=== PATIENT | male | born 1960 | race Caucasian/White ===

== ENCOUNTER 2018-09-13 13:24 | Emergency (ER) | payer OTHER ==
--- NOTE | 2018-09-13 14:17 | ER ---
Nurse's Notes [facility] Name: Jonas Clark Age: 57 yrs Sex: Male : 1960 Arrival Date: 09/13/2018 Time: 13:27 Bed 12 Private MD: None, None Diagnosis: Encounter for medication refill Presentation: 09/13 13:28 Presenting complaint: Patient states: he needs Abilify, Lisinopril, Duloxetine, and sv Lovastatin refilled. Transition of care: patient was not received from another setting of care. Onset of symptoms was September 13, 2018. Care prior to arrival: None. 13:28 Method Of Arrival: Ambulatory sv 13:28 Acuity: YESENIA 5 sv 13:45 Risk Assessment: Do you want to hurt yourself or someone else? Patient reports no iw desire to harm self or others. Initial Sepsis Screen: Does the patient meet any 2 criteria? No. Patient's initial sepsis screen is negative. Does the patient have a suspected source of infection? No. Patient's initial sepsis screen is negative. Triage Assessment: 13:28 General: Appears in no apparent distress. comfortable, well developed, Behavior is sv calm, cooperative, appropriate for age. Pain: Denies pain. Neuro: Level of Consciousness is awake, alert, obeys commands, Oriented to person, place, time, situation, Moves all extremities. Full function Gait is steady, Speech is normal. Respiratory: Respiratory effort is even, unlabored, Respiratory pattern is regular, symmetrical. Derm: Skin is normal. Historical: - Allergies: 13:31 No Known Allergies; sv - Home Meds: 13:31 lisinopril 20 mg Oral tab 1 tab once daily [Active]; duloxetine 20 mg oral cpDR 2 cap 2 sv times per day [Active]; aripiprazole 2 mg oral tab daily [Active]; lovastatin 20 mg Oral tab 2 tabs once daily [Active]; - PMHx: 13:31 Hypertension; High Cholesterol; Bipolar disorder; Depression; sv - Immunization history:: Flu vaccine is not up to date. - Social history:: Smoking status: Patient/guardian denies using tobacco. - Ebola Screening: : No symptoms or risks identified at this time. Screenin:42 Abuse screen: Denies threats or abuse. Denies injuries from another. Nutritional sv screening: No deficits noted. Tuberculosis screening: No symptoms or risk factors identified. Fall Risk None identified. Assessment: 14:40 General: Appears in no apparent distress. Behavior is calm, cooperative. Pain: Denies iw pain. Neuro: Level of Consciousness is awake, alert, obeys commands, Oriented to person, place, time, situation, Moves all extremities. Full function. Cardiovascular: Patient's skin is warm and dry. Respiratory: Respiratory effort is even, unlabored, Respiratory pattern is regular. Derm: Skin is intact, is healthy with good turgor. Musculoskeletal: Range of motion: intact in all extremities. Vital Signs: 13:32 BP 109 / 81; Pulse 89; Resp 16; Temp 97.8; Pulse Ox 98% ; Weight 90.72 kg; Height 5 ft. sv 8 in. (172.72 cm); Pain 0/10; 13:32 Body Mass Index 30.41 (90.72 kg, 172.72 cm) sv ED Course: 13:27 Patient arrived in ED. mr 13:27 None, None is Private Physician. mr 13:29 Triage completed. sv 13:32 Arm band placed on. sv 13:42 Patient has correct armband on for positive identification. Call light in reach. Adult sv w/ patient. 13:55 Judy Medeiros, MYKEL is Primary Nurse. iw 13:56 Twin Bernardo PA is PHCP. jr8 13:56 Rolan Butcher MD is Attending Physician. jr8 14:40 No provider procedures requiring assistance completed. Patient did not have IV access iw during this emergency room visit. Administered Medications: No medications were administered Outcome: 14:16 Discharge ordered by . jr8 14:48 Discharged to home ambulatory, with family. iw 14:48 Condition: good 14:48 Discharge instructions given to patient, family, Instructed on discharge instructions, follow up and referral plans. medication usage, Demonstrated understanding of instructions, follow-up care, medications, Prescriptions given X 4. 14:49 Patient left the ED. em Signatures: Bridget Tsai RN RN sv Kenny Safia Monk, Timo, SERVICE ENGINE REPAIRER SERVICE ENGINE REPAIRER em Judy Medeiros RN RN iw Twin Bernardo, PA PA jr8
--- NOTE | 2018-09-13 14:17 | EDPHYS ---
Physician Documentation [facility] Name: Jonas Clark Age: 57 yrs Sex: Male : 1960 Arrival Date: 09/13/2018 Time: 13:27 Bed 12 Private MD: None, None ED Physician Rolan Butcher HPI: 09/13 14:13 This 57 yrs old Male presents to ER via Ambulatory with complaints of jr8 Medication Refill. 14:13 The patient presents to the emergency department requesting refill(s) for: Lovastatin, jr8 Lisinopril, duloxetine, Abilify. The patient has not experienced similar symptoms in the past. The patient has not recently seen a physician. Patient just got on Medicaid. The clinic he was going to now does not except that so is in search of another primary care but is almost out of his medications . Historical: - Allergies: 13:31 No Known Allergies; sv - Home Meds: 13:31 lisinopril 20 mg Oral tab 1 tab once daily [Active]; duloxetine 20 mg oral cpDR 2 cap 2 sv times per day [Active]; aripiprazole 2 mg oral tab daily [Active]; lovastatin 20 mg Oral tab 2 tabs once daily [Active]; - PMHx: 13:31 Hypertension; High Cholesterol; Bipolar disorder; Depression; sv - Immunization history:: Flu vaccine is not up to date. - Social history:: Smoking status: Patient/guardian denies using tobacco. - Ebola Screening: : No symptoms or risks identified at this time. ROS: 14:13 Eyes: Negative for injury, pain, redness, and discharge, ENT: Negative for injury, jr8 pain, and discharge, Neck: Negative for injury, pain, and swelling, Cardiovascular: Negative for chest pain, palpitations, and edema, Respiratory: Negative for shortness of breath, cough, wheezing, and pleuritic chest pain, Abdomen/GI: Negative for abdominal pain, nausea, vomiting, diarrhea, and constipation, Back: Negative for injury and pain, MS/Extremity: Negative for injury and deformity, Skin: Negative for injury, rash, and discoloration, Neuro: Negative for headache, weakness, numbness, tingling, and seizure. Exam: 14:13 Eyes: Pupils equal round and reactive to light, extra-ocular motions intact. Lids and jr8 lashes normal. Conjunctiva and sclera are non-icteric and not injected. Cornea within normal limits. Periorbital areas with no swelling, redness, or edema. ENT: Nares patent. No nasal discharge, no septal abnormalities noted. Tympanic membranes are normal and external auditory canals are clear. Oropharynx with no redness, swelling, or masses, exudates, or evidence of obstruction, uvula midline. Mucous membranes moist. Neck: Trachea midline, no thyromegaly or masses palpated, and no cervical lymphadenopathy. Supple, full range of motion without nuchal rigidity, or vertebral point tenderness. No Meningismus. Cardiovascular: Regular rate and rhythm with a normal S1 and S2. No gallops, murmurs, or rubs. Normal PMI, no JVD. No pulse deficits. Respiratory: Lungs have equal breath sounds bilaterally, clear to auscultation and percussion. No rales, rhonchi or wheezes noted. No increased work of breathing, no retractions or nasal flaring. Abdomen/GI: Soft, non-tender, with normal bowel sounds. No distension or tympany. No guarding or rebound. No evidence of tenderness throughout. Back: No spinal tenderness. No costovertebral tenderness. Full range of motion. Skin: Warm, dry with normal turgor. Normal color with no rashes, no lesions, and no evidence of cellulitis. MS/ Extremity: Pulses equal, no cyanosis. Neurovascular intact. Full, normal range of motion. Neuro: Awake and alert, GCS 15, oriented to person, place, time, and situation. Cranial nerves II-XII grossly intact. Motor strength 5/5 in all extremities. Sensory grossly intact. Cerebellar exam normal. Normal gait. Vital Signs: 13:32 BP 109 / 81; Pulse 89; Resp 16; Temp 97.8; Pulse Ox 98% ; Weight 90.72 kg; Height 5 ft. sv 8 in. (172.72 cm); Pain 0/10; 13:32 Body Mass Index 30.41 (90.72 kg, 172.72 cm) sv MDM: 13:56 Patient medically screened. jr8 14:13 Data reviewed: vital signs, nurses notes, and as a result, I will discharge patient. jr8 Data interpreted: Pulse oximetry: on room air is 98 %. Interpretation: normal. Counseling: I had a detailed discussion with the patient and/or guardian regarding: the historical points, exam findings, and any diagnostic results supporting the discharge/admit diagnosis, lab results, the need for outpatient follow up, a family practitioner, to return to the emergency department if symptoms worsen or persist or if there are any questions or concerns that arise at home. Administered Medications: No medications were administered Disposition: 17:11 Co-signature as Attending Physician, Rolan Butcher MD I agree with the assessment and sadaf plan of care. Disposition: 09/13/18 14:16 Discharged to Home. Impression: Encounter for medication refill . - Condition is Stable. - Prescriptions for duloxetine 20 mg Oral capsule,delayed release(DR/EC) - take 2 capsules by ORAL route 2 times per day; 120 capsule. lovastatin 20 mg Oral tablet - take 2 tablet by ORAL route once daily; 60 tablet. Lisinopril 20 mg Oral Tablet - take 1 tablet by ORAL route once daily; 30 tablet. Abilify 5 mg Oral tablet - take 1 tablet by ORAL route once daily; 30 tablet. - Medication Reconciliation Form, Thank You Letter, Antibiotic Education, Prescription Opioid Use form. - Follow up: Private Physician; When: 10 - 14 days; Reason: Recheck today's complaints, Continuance of care, Re-evaluation by your physician. - Problem is new. - Symptoms are unchanged. Signatures: Bridget Tsai RN RN sv Anderson, Corey, MD MD cha Munoz, Edgar, EPIC CUPID ANALYST EPIC CUPID ANALYST em Twin Bernardo PA PA jr8 Corrections: (The following items were deleted from the chart) 14:49 14:16 09/13/2018 14:16 Discharged to Home. Impression: Encounter for medication refill em . Condition is Stable. Forms are Medication Reconciliation Form, Thank You Letter, Antibiotic Education, Prescription Opioid Use. Follow up: Private Physician; When: 10 - 14 days; Reason: Recheck today's complaints, Continuance of care, Re-evaluation by your physician. Problem is new. Symptoms are unchanged. jr8
== END 2018-09-13 14:49 | disposition home or self-care (01) ==
LOC: ER 13:24
DX: Z76.0 Encounter for issue of repeat prescription (principal); E78.00 Pure hypercholesterolemia, unspecified; I10 Essential (primary) hypertension; F31.9 Bipolar disorder, unspecified; Z79.899 Other long term (current) drug therapy
CPT/HCPCS: 99282

== ENCOUNTER 2018-11-12 10:21 | Emergency (ER) | payer OTHER, SELFPAY ==
--- NOTE | 2018-11-12 12:06 | RAD REPORT ---
EXAM DESCRIPTION: RAD - Chest Pa And Lat (2 Views) - 11/12/2018 11:50 am CLINICAL HISTORY: Acute onset shortness of breath COMPARISON: None. TECHNIQUE: PA and lateral views of the chest were obtained. FINDINGS: The lungs are clear of a focal consolidation or mass. Lung markings are mildly prominent. Baseline for the patient is unknown. Failure and volume overload are not suspected. Heart size is no rmal and central vasculature is within normal limits. No pleural effusion or pneumothorax seen. No acute bony finding noted. Old rib trauma noted on the right. No aortic abnormality. IMPRESSION: No focal infiltrate, mass or failure finding seen. Interstitial markings are prominent. This is probably baseline for the patient. A mild interstitial e jazmin or infiltrate not excluded.
[2018-11-12 13:20] LABS: Protime INR 1.04
[2018-11-12 13:45] LABS: ALT/SGPT 53 U/L (12-78); AST/SGOT 19 U/L (15-37); Alkaline Phosphatase 65 U/L (45-117); BUN Blood Urea Nitrogen 16 mg/dL (7-18); Bicarbonate 28 mmol/L (21-32); Bilirubin Direct < 0.1 mg/dL (0-0.2); Bilirubin Total 0.3 mg/dL (0.2-1.0); Glucose Level 119 mg/dL (74-106); Magnesium 2.3 mg/dL (1.8-2.4); NT PRO-BNP 11 pg/mL (<125); Potassium 4.3 mmol/L (3.5-5.1); Protein, Total 7.8 g/dL (6.4-8.2); Sodium Level 138 mmol/L (136-145); Troponin (Emerg Dept Use Only) < 0.02 ng/mL (0.0-0.045)
--- NOTE | 2018-11-12 13:59 | EKG ---
Test Date: 2018-11-12 Test Time: 12:01:20 Truck Switcher: LM MEASUREMENT RESULTS: Intervals: Rate: 81 SD: 180 QRSD: 82 QT: 360 QTc: 418 [place]: P: 43 SD: 180 QRS: 1 T: 47 INTERPRETIVE STATEMENTS: Normal sinus rhythm Possible Left atrial enlargement Low voltage QRS Cannot rule out Anterior infarct, age undetermined Abnormal ECG No previous ECG available for comparison Electronically Signed On 11-12-18 13:58:29 J[employer] KNITTER by Gael Ernandez
--- NOTE | 2018-11-12 14:35 | RAD REPORT ---
EXAM DESCRIPTION: CT - Chest For Pe Angio - 11/12/2018 2:19 pm CLINICAL HISTORY: Chest pain. chest pain, shortness of breath COMPARISON: No comparisons TECHNIQUE: CT angiogram of the pulmonary arteries was performed with MIP. All CT scans are performed using dose optimization technique as appropriate and may include automated exposure control or mA/KV adjustment according to patient size. FINDINGS: No evidence of pulmonary thromboembolism. No acute aortic finding demonstrated. The lungs are clear. No significant pericardial or pleural fluid. No concerning bony finding. Fatty liver noted. IMPRESSION: No evidence of pulmonary thromboembolism. No acute lung findings.
[2018-11-12] MEDS ORDERED: KETOROLAC 30 MG/ML INJ ONE (15:02)
--- NOTE | 2018-11-12 15:14 | ER ---
Nurse's Notes [facility] Name: Jonas Clark Age: 57 yrs Sex: Male : 1960 Arrival Date: 11/12/2018 Time: 10:25 Bed 19 Private MD: None, None Diagnosis: Thoracic strain Presentation: 11/12 10:35 Presenting complaint: Patient states: SOB since this morning. Reports pain increases sv when he takes a deep breath. Transition of care: patient was not received from another setting of care. Onset of symptoms was November 12, 2018. Care prior to arrival: None. 10:35 Method Of Arrival: Ambulatory sv 10:35 Acuity: YESENIA 3 sv 12:33 Risk Assessment: Do you want to hurt yourself or someone else? Patient reports no em desire to harm self or others. Initial Sepsis Screen: Does the patient meet any 2 criteria? No. Patient's initial sepsis screen is negative. Does the patient have a suspected source of infection? No. Patient's initial sepsis screen is negative. Triage Assessment: 10:37 General: Appears in no apparent distress. uncomfortable, Behavior is calm, cooperative, sv appropriate for age. Pain: Complains of pain in right scapular area and right subscapular area Pain currently is 5 out of 10 on a pain scale. Neuro: Level of Consciousness is awake, alert, obeys commands, Oriented to person, place, time, situation, Moves all extremities. Full function Gait is steady, Speech is normal. Respiratory: Reports shortness of breath when taking a deep breath pain with respiration Airway is patent Respiratory effort is even, unlabored, Respiratory pattern is regular, symmetrical, Onset: The symptoms/episode began/occurred this morning, the patient has mild shortness of breath. Historical: - Allergies: 10:36 No Known Allergies; sv - PMHx: 10:36 Bipolar disorder; Depression; High Cholesterol; Hypertension; sv - Immunization history:: Flu vaccine is up to date. - Social history:: Smoking status: Patient/guardian denies using tobacco. - Ebola Screening: : No symptoms or risks identified at this time. Screenin:33 Abuse screen: Denies threats or abuse. Nutritional screening: No deficits noted. em Tuberculosis screening: No symptoms or risk factors identified. Fall Risk None identified. Assessment: 12:33 General: Appears in no apparent distress. comfortable, Behavior is calm, cooperative. em Pain: Complains of pain in right subscapular area Pain currently is 5 out of 10 on a pain scale. Neuro: Level of Consciousness is awake, alert, obeys commands, Oriented to person, place, time, situation. Cardiovascular: Rhythm is sinus rhythm. Respiratory: Airway is patent Respiratory effort is even, unlabored, Respiratory pattern is regular, symmetrical, Breath sounds are clear bilaterally. GI: Abdomen is umbilical hernia noted Patient currently denies nausea, vomiting. Derm: Skin is intact, Skin is pink, warm \T\ dry. Musculoskeletal: Range of motion: intact in all extremities. 13:30 Reassessment: Patient appears in no apparent distress at this time. Patient and/or em family updated on plan of care and expected duration. Pain level reassessed. Patient is alert, oriented x 3, equal unlabored respirations, skin warm/dry/pink. 14:49 Reassessment: Patient appears in no apparent distress at this time. Patient and/or em family updated on plan of care and expected duration. Pain level reassessed. Patient is alert, oriented x 3, equal unlabored respirations, skin warm/dry/pink. 15:48 Reassessment: Patient appears in no apparent distress at this time. Patient and/or em family updated on plan of care and expected duration. Pain level reassessed. Patient is alert, oriented x 3, equal unlabored respirations, skin warm/dry/pink. Patient denies pain at this time. Patient states feeling better. Vital Signs: 10:36 BP 112 / 70; Pulse 83; Resp 20; Temp 97.9; Pulse Ox 97% ; Weight 96.16 kg; Height 5 ft. sv 8 in. (172.72 cm); Pain 5/10; 12:28 BP 126 / 90; Pulse 84; Resp 18; Pulse Ox 97% on R/A; em 13:30 BP 109 / 77; Pulse 77; Resp 18; Pulse Ox 99% on R/A; em 14:49 BP 124 / 89; Pulse 66; Resp 18; Pulse Ox 100% on R/A; Pain 7/10; em 15:49 BP 113 / 85; Pulse 70; Resp 18; Pulse Ox 99% on R/A; Pain 0/10; em 10:36 Body Mass Index 32.23 (96.16 kg, 172.72 cm) sv ED Course: 10:25 Patient arrived in ED. mr 10:26 None, None is Private Physician. mr 10:36 Triage completed. sv 10:37 Arm band placed on. sv 10:49 X-ray ordered. sv 11:47 Patient moved to radiology ambulated, refused wheelchair. jb2 11:48 X-ray completed. Patient tolerated procedure well. Patient moved back from radiology. jb2 11:49 Chest Pa And Lat (2 Views) In Process Unspecified. EDMS 12:00 Jorge Luis Yost PA is PHCP. [facility] 12:00 Tito Graham MD is Attending Physician. [facility] 12:10 Timo Monk LVN is Primary Nurse. em 12:17 EKG done, by principal technical writer. reviewed by Jorge Luis FOSTER. 3 12:33 Patient has correct armband on for positive identification. Bed in low position. Call em light in reach. Side rails up X2. Adult w/ patient. glass blower on. Pulse ox on. NIBP on. 12:41 Initial lab(s) drawn, by tx, sent to lab. Inserted saline lock: 20 gauge in right em antecubital area, using aseptic technique. Blood collected. 13:24 Radiology exam delayed due to lab results not completed at this time. (BUN/Creatinine). vr 14:51 CT Chest For PE Angio In Process Unspecified. EDMS 15:48 No provider procedures requiring assistance completed. IV discontinued, intact, em bleeding controlled, No redness/swelling at site. Pressure dressing applied. Administered Medications: No medications were administered Outcome: 15:13 Dis[address] ordered by . [facility] 15:48 Discharged to home ambulatory. em 15:48 Condition: good 15:48 Discharge instructions given to patient, Instructed on discharge instructions, follow up and referral plans. medication usage, Demonstrated understanding of instructions, follow-up care, medications, Prescriptions given X 1. 15:50 Patient left the ED. em Signatures: Dispatcher [employer] Bridget Marks, MYKEL RN Jorge Luis Bazzi PA PA jmm Rivera, Mary Jules Miguelsse jb2 Timo Monk, COORDINATOR OF REHABILITATION SERVICES COORDINATOR OF REHABILITATION SERVICES Fiorella Zayas Michell Jane 3
--- NOTE | 2018-11-12 15:15 | EDPHYS ---
Physician Documentation [facility] Name: Jonas Calrk Age: 57 yrs Sex: Male : 1960 Arrival Date: 11/12/2018 Time: 10:25 Bed 19 Private MD: None, None ED Physician Tito Graham HPI: 11/12 12:08 This 57 yrs old Male presents to ER via Ambulatory with complaints of jmm Shortness Of Breath. 12:08 The patient has shortness of breath at rest. Onset: The symptoms/episode began/occurred jmm this morning. Duration: The symptoms are continuous. Associated signs and symptoms: Pertinent negatives: fever. The patient has not experienced similar symptoms in the past. This is a 57 year old male with a history of htn, hlp that presents to the ED with right sided thoracic pain worsening with deep inspiration. Symptoms began this morning. Denies similar symptoms in the past. . Historical: - Allergies: 10:36 No Known Allergies; sv - PMHx: 10:36 Bipolar disorder; Depression; High Cholesterol; Hypertension; sv - Immunization history:: Flu vaccine is up to date. - Social history:: Smoking status: Patient/guardian denies using tobacco. - Ebola Screening: : No symptoms or risks identified at this time. ROS: 12:08 Constitutional: Negative for fever, chills, and weight loss. jmm 12:08 Abdomen/GI: Negative for abdominal pain, nausea, vomiting, diarrhea, and constipation. 12:08 Cardiovascular: Negative for chest pain. 12:08 Respiratory: Positive for shortness of breath. 12:08 Back: Positive for pain at rest. 12:08 All other systems are negative. Exam: 12:08 Constitutional: This is a well developed, well nourished patient who is awake, alert, jmm and in no acute distress. Head/Face: atraumatic. Eyes: EOMI, no conjunctival erythema appreciated ENT: Moist Mucus Membranes Neck: Trachea midline, Supple Chest/axilla: Normal chest wall appearance and motion. 12:08 Cardiovascular: Rate: normal, Rhythm: regular. 12:08 Respiratory: the patient does not display signs of respiratory distress, Respirations: normal, Breath sounds: are clear throughout. 12:08 Abdomen/GI: Inspection: Palpation: soft, in all quadrants, Hernia: noted in the paraumbilical area and umbilical area. 12:08 Back: ROM is normal. 12:08 Musculoskeletal/extremity: ROM: intact in all extremities. 12:08 Skin: Appearance: Color: normal in color. 12:08 Neuro: Orientation: is normal, Mentation: is normal, Memory: is normal. 12:08 Psych: Behavior/mood is pleasant, cooperative. Vital Signs: 10:36 BP 112 / 70; Pulse 83; Resp 20; Temp 97.9; Pulse Ox 97% ; Weight 96.16 kg; Height 5 ft. sv 8 in. (172.72 cm); Pain 5/10; 12:28 BP 126 / 90; Pulse 84; Resp 18; Pulse Ox 97% on R/A; em 13:30 BP 109 / 77; Pulse 77; Resp 18; Pulse Ox 99% on R/A; em 14:49 BP 124 / 89; Pulse 66; Resp 18; Pulse Ox 100% on R/A; Pain 7/10; em 15:49 BP 113 / 85; Pulse 70; Resp 18; Pulse Ox 99% on R/A; Pain 0/10; em 10:36 Body Mass Index 32.23 (96.16 kg, 172.72 cm) sv MDM: 12:05 Patient medically screened. [facility] 15:10 Differential diagnosis: Pulmonary Embolism Aortic dissection, costochondritis, [facility] pleurisy. Data reviewed: vital signs, nurses notes, lab test result(s), radiologic studies, CT scan, plain films. ED course: Patient is point tender in the right thoracic region. Patient has no complaints of chest pain. I do not suspect ACS. CTA chest negative. Patient advised to follow up with PCP. Patient is given strict return precautions. . 11/12 12:06 Order name: Basic Metabolic Panel; Complete Time: 14:49 [facility] 11/12 12:06 Order name: CBC with Diff [facility] 11/12 12:06 Order name: LFT's; Complete Time: 14:49 [facility] 11/12 12:06 Order name: Magnesium; Complete Time: 14:49 [facility] 11/12 12:06 Order name: NT PRO-BNP; Complete Time: 14:49 [facility] 11/12 12:06 Order name: PT-INR; Complete Time: 14:45 [facility] 11/12 10:54 Order name: Chest Pa And Lat (2 Views); Complete Time: 13:12 [facility] 11/12 12:06 Order name: Troponin (emerg Dept Use Only); Complete Time: 14:49 [facility] 11/12 12:06 Order name: EKG; Complete Time: 12:07 [facility] 11/12 12:06 Order name: Cardiac monitoring; Complete Time: 12:41 [facility] 11/12 12:06 Order name: EKG - Nurse/Tech; Complete Time: 12:41 [facility] 11/12 12:07 Order name: CT Chest For PE Angio; Complete Time: 14:52 [facility] 11/12 12:06 Order name: IV Saline Lock; Complete Time: 12:41 [facility] 11/12 12:06 Order name: Labs collected and sent; Complete Time: 12:41 [facility] 11/12 12:06 Order name: O2 Per Protocol; Complete Time: 12:41 [facility] 11/12 12:06 Order name: O2 Sat Monitoring; Complete Time: 12:41 [facility] Administered Medications: No medications were administered Disposition: 17:10 Co-signature as Attending Physician, Tito Graham MD. rn Disposition: 11/12/18 15:13 Discharged to Home. Impression: Thoracic strain. - Condition is Stable. - Discharge Instructions: Costochondritis, Thoracic Strain. - Prescriptions for Ibuprofen 800 mg Oral Tablet - take 1 tablet by ORAL route every 12 hours As needed take with food; 20 tablet. - Medication Reconciliation Form, Thank You Letter, Antibiotic Education, Prescription Opioid Use form. - Follow up: Private Physician; When: 2 - 3 days; Reason: Recheck today's complaints, Continuance of care, Re-evaluation by your physician. Signatures: Dispatcher [employer] [facility] Bridget Tsai, Jorge Luis Reyes RN PA PA [facility] Timo Monk, VIDEO EFFECTS EDITOR VIDEO EFFECTS EDITOR Tito Rolon MD MD corner trimmer operator: (The following items were deleted from the chart) 11:37 10:54 Chest Pa And Lat (2 Views)+RAD.RAD.BRZ ordered. [facility] 14:43 12:07 Chest Single View+RAD.RAD.BRZ ordered. [facility] 15:10 12:08 This is a 57 year old male with a history of htn, hlp that presents to the ED [facility] with right sided chest pain worsening with deep inspiration. Symptoms began this morning. Denies similar symptoms in the past. . [facility] 15:10 12:08 Cardiovascular: Positive for chest pain, [facility] gong 15:50 15:13 11/12/2018 15:13 Discharged to Home. Impression: Thoracic strain. Condition is em Stable. Forms are Medication Reconciliation Form, Thank You Letter, Antibiotic Education, Prescription Opioid Use. Follow up: Private Physician; When: 2 - 3 days; Reason: Recheck today's complaints, Continuance of care, Re-evaluation by your physician. beltran
== END 2018-11-12 15:50 | disposition home or self-care (01) ==
LOC: ER 10:21
DX: S29.012A Strain of muscle and tendon of back wall of thorax, initial encounter (principal); I10 Essential (primary) hypertension
CPT/HCPCS: 36415; 71046; 71275; 80048; 80076; 83735; 83880; 84484; 85025; 85610; 93005; Q9967

== ENCOUNTER 2020-04-27 08:51 | Emergency (ER) | payer SELFPAY ==
--- OUTSIDE RECORDS SUMMARY | 2020-04-27 09:25 | XMS REPORT | Continuity of Care Document ---
:1960 Author Organization [facility] t Address [address] [place] [address] Care Team Providers Name Role Phone Rian SHIRLEY Attending Clinician Problems This patient has no known problems. Allergies, Adverse Reactions, Alerts This patient has no known allergies or adverse reactions. Medications This patient has no known medications. Procedures This patient has no known procedures. Encounters Start End Encounter Admission Attending Care Care Encounter Source Date/Time Date/Time Type Type Clinicians Facility Department ID 2020-04-19 2020-04-19 Office CHRISTINE Modi [id number] 12:35:13 13:59:47 Visit Nohemy Bond [id number] Nitesh [id number] Alecia [id number] [place] [address] Building Results This patient has no known results.
--- OUTSIDE RECORDS SUMMARY | 2020-04-27 09:25 | XMS REPORT | Summary of Care ---
:1960 Author Organization [facility] - [facility] Address [address] [place] [address] Care Team Providers Name Role Phone Vince [place] DO Primary Care Provider Reason for Referral MRI/CAT Scan (Routine) Status Reason Specialty Diagnoses / Referred By Referred To Procedures Contact Contact New Request Diagnostic Diagnoses Ventral hernia without obstruction or gangrene Rian, Radiology Procedures CT ABDOMEN PELVIS W CONTRAST MD Nohemy [address] [place] [address] [address] [place] [address] Reason for Visit Reason Comments New Patient HERNIA 01/02 (Routine) Status Reason Specialty Diagnoses / Referred By Referred To Procedures Contact Contact Authorized BRAVO-SURGERY / Diagnoses Umbilical hernia without obstruction or gangrene Ventral hernia without obstruction or gangrene Hernia Vince [place], Surgery Procedures CONSULT GENERAL SURGERY NEW VISIT (FIRST TIME) DO Nohemy Gabriel MD [address] [place] [address] [address] [place] [address] [place], [place] Phone: [phone] Phone: Encounter Details Date Type Department Care Team Description 04/19/2020 Office Visit [facility] Surgical Nohemy Modi Ve ntral hernia without obstruction or gangrene (Primary Dx); Specialties - Sheri pearce MD Umbilical hernia without obstruction and without gangrene; [address], [address] [place] [address] Chronic hepatitis C without hepatic coma [address] [facility] [address] [address] [place], [place] [phone] [address] [phone] Allergies No Known Allergiesdocumented as of this encounter (statuses as of 04/20/2020) Medications Medication Sig Dispensed Refills Start Date End Date Status lisinopril 20 mg Take 20 mg 0 03/03/2020 A ctive tablet by mouth daily. pravastatin 20 mg Take 20 mg 0 03/29/2020 Active tablet by mouth every evening. lisinopril 20 mg Take 20 mg 0 04/17/2020 04/19/2020 Discontinued tablet by mouth (Duplicate ) daily. documented as of this encounter (statuses as of 04/20/2020) Active Problems Problem Noted Date Alcohol abuse, in remission 04/17/2020 Chronic viral hepatitis C 04/17/2020 Dysthymia 04/17/2020 Essential (primary) hypertension 04/17/2020 Familial hypercholesterolemia 04/17/2020 Personal history of nicotine dependence 04/17/2020 Skin lesion 04/17/2020 Umbilical hernia without obstruction or gangrene 04/17 documented as of this encounter (statuses as of 04/20/2020) Social History Tobacco Use Types Packs/Day Years Used Date Former Smoker Smokeless Tobacco: Former User Alcohol Use Drinks/Week oz/Week Comments Not Currently Sex Assigned at Date Recorded Not on file Job Start Date Occupation Industry Not on file Not on file Not on file Travel History Travel Start Travel End No recent travel history available. COVID-19 Exposure Response Date Recorded In the last month, have you been in contact with No / Unsure 04/19/2020 1:06 PM CDT someone who was confirmed or suspected to have Coronavirus / COVID-19? documented as of this encounter Last Filed Vital Signs Vital Sign Reading Time Taken Comments Blood Pressure 135/93 04/19/2020 1:06 PM CDT Pulse 83 04/19/2020 1:06 PM CDT Temperature 36.3 C (97.3 F) 04/19/2020 1:06 PM CDT Respiratory Rate 18 04/19/2020 1:06 PM CDT Oxygen Saturation - - Inhaled Oxygen Concentration - - Weight 91.3 kg (201 lb 3.2 oz) 04/19/2020 1:06 PM CDT Height - - Body Mass Index - - documented in this encounter Progress Notes Joana Hyman MD - 04/19/2020 1:00 PM CDT Visit Type: Clinic Note / History and Physical Chief Complaint: Abdominal Hernia HPI Jonas Clark is a 59 year old /White male with PMH of HepC, HTN, and HLD who presents with complaints of abdominal hernia rated as 2/10 pain and stabbing in nature. Patient states he first noticed the hernia in 2011 and that it has been slowly increasing in size and becoming more painful. Patient says the pain comes on and off throughout the day but is worse with exertion. Patient has a FH pertinent for unspecified cancer on the maternal side. Patient used to use tobacco, alcohol, and IV drugs but has been sober now for 29 years. Patient states he would like to have his hernia repaired as it is starting to bother him more often. He did not finish his treatment for Hep C. Histories PMH: HepC, HTN, and HLD Social History Socioeconomic History Marital status: Spouse name: Not on file Number of children: Not on file Years of education: Not on file Highest education level: Not on file Occupational History Not on file Social Needs Financial resource strain: Not on file Food insecurity: Worry: Not on file Inability: Not on file Transportation needs: Medical: Not on file Non-medical: Not on file Tobacco Use Smoking status: Not on file Substance and Sexual Activity Alcohol use: Not on file Drug use: Not on file Sexual activity: Not on file Lifestyle Physical activity: Days per week: Not on file Minutes per session: Not on file Stress: Not on file Relationships Social connections: Talks on phone: Not on file Gets together: Not on file Attends sikh service: Not on file Active member of club or organization: Not on file Attends meetings of clubs or organizations: Not on file Relationship status: Not on file Intimate partner violence: Fear of current or ex partner: Not on file Emotionally abused: Not on file Physically abused: Not on file Forced sexual activity: Not on file Other Topics Concern Not on file Social History Narrative Not on file No Known Allergies No current outpatient medications on file. No current facility-administered medications for this visit. Review of Systems (-)=Negative,(+)=Positive Constitutional: Denies fever or chills Eyes: Denies change in visual acuity HENT: Denies nasal congestion or sore throat Respiratory: Denies cough or shortness of breath Cardiovascular: Denies chest pain or edema GI: + black stool and some intermittent hematochezia, + diarrhea : Denies dysuria Musculoskeletal: Denies back pain or joint pain Integument: Denies rash Neurologic: Denies headache, focal weakness or sensory changes Endocrine: Denies polyuria or polydipsia Lymphatic: Denies swollen glands Psychiatric: Denies depression or anxiety Physical Exam (-)=Negative,(+)=Positive BP (!) 135/93 (BP Location: Left arm, Patient Position: Sitting, BP CUFF SIZE: Adult Large) | Pulse83 | Temp 36.3 C (97.3 F) (Oral) | Resp 18 | Wt 91.3 kg (201 lb 3.2 oz) Constitutional: Well developed, well nourished, no acute distress, non-toxic appearance Eyes: PERRL, conjunctiva normal, anicteric HENT: Atraumatic. Neck- normal range of motion, no tenderness, supple Respiratory: No respiratory distress, normal breath sounds, Cardiovascular: Normal rate, normal rhythm GI: Patient has 1 Ventral hernia supraumbilical and also a 2x2 cm umbilical hernia. Both reducible, slightly TTP, Musculoskeletal: No edema, no tenderness, no deformities. Back- no tenderness Integument: Well hydrated, no rash Lymphatic: No lymphadenopathy noted Neurologic: Alert & oriented x 3, normal motor function, normal sensory function, no focal deficits noted Psychiatric: Speech and behavior appropriate Assessment/Diagnosis Jonas Clark is a 59 year old /White male with PMH of HepC, HTN, and HLD who presents with complaints of ventral hernia and umbilical hernia -Unmonitored HCC Plan Due to patients unmonitored HepC infection will order the following labs and imagine to better assess this problem before addressing the abdominal hernias. -will order CBC, CMP, LFT, Hepatitis Panel, HepC Viral Load, PT/PTT, TSH, Lipid pannel -will order CT abd/pelvic to assess hepatic status and better visualize abdominal hernia -Return to clinic in 2 weeks with study results Note done by Mark Webb MS3, edited by me Joana Alvarez MD General Surgery. PGY2 Attending Attestation: I personally evaluated and examined the patient on 04/20/[address] Alvarez's clinic note aswritten. I actively participated in the decision-making process. Please see the resident's note for additional details. Nohemy Modi M.D. 04/20/2020 16:16 Sarahy Phelps - 04/19/2020 1:00 PM CDGamaliel Clark is a 59 year old male comes to clinic independent in ambulation for new patient hernia. Pt comes alone . Pt in NAD w/ pain reported 01/02. Pt preferred language is [place]. Pt. denies fall in last 12 months. Allergies and medications reviewed and updated. [facility] [place] [place] [facility] [address] [facility] [place] [address] [address] Sarahy Phelps 04/19/2020 1:08 PM documented in this encounter Plan of Treatment Date Type Specialty Care Team Description 04/27/2020 Appointment Radiology Nohemy Modi MD [address] [place] [address] [address] [place], [place] [id number] 05/03/2020 Office [place] [address] [place] [address] [address] [place], [place] [address] Name Type Priority Associated Diagnoses Order S chedule CT ABDOMEN PELVIS W IMAGING Routine Ventral hernia withou t Expected: CONTRAST obstruction or gangrene 03/27, Expires: 04/19/2021 CREATININE LAB Routine Ventral hernia without Expec abhijit: obstruction or gangrene 03/27, Expires: 04/19/2021 HIV 1/2 AG-AB WITH LAB Routine Ventral hernia without Expected: REFLEX obstruction or gangrene 03/27, Expires: 04/19/2021 HBV BY REAL-TIME PCR LAB Routine Ventral hernia witho ut Expected: obstruction or gangrene 03/27, Expires: 04/19/2021 HEPATITIS C VIRUS LAB Routine Ventral hernia without Expected: GENOTYPE obstruction or gangrene 03/27, Expires: 04/19/2021 THYROID STIMULATING LAB Routine Ventral hernia withou t Expected: HORMONE obstruction or gangrene 03/27, Expires: 04/19/2021 CBC WITH DIFF LAB Routine Ventral hernia without Expe cted: obstruction or gangrene 03/27, Expires: 04/19/2021 COMP. METABOLIC PANEL LAB Routine Ventral hernia with out Expected: ([id number]) obstruction or gangrene 03/27, Expires: 04/19/2021 HEPATIC FUNCTION PANEL LAB Routine Ventral hernia wit hout Expected: ([id number]) (ALB,T.PRO,BILI obstruction or ga ngrene 04/19/2020, Expires: T,BU/BC,ALT,AST,ALK 04/19/20 21 PHOS) aPTT LAB Routine Ventral hernia without Expec abhijit: obstruction or gangrene 03/27, Expires: 04/19/2021 PROTHROMBIN TIME / INR LAB Routine Ventral hernia wit hout Expected: obstruction or gangrene 03/27, Expires: 04/19/2021 LIPID PANEL LAB Routine Ventral hernia without Expec abhijit: ([id number])(TOTAL obstruction or gangrene , Expires: CHOLESTEROL, 04/19/2021 TRIGLYCERIDES, HDL) Health Maintenance Due Date Last Done Comments HEPATITIS C (HCV) SCREEN 1960 PNEUMOCOCCAL 0-64 YEARS COMBINED SERIES (1 of 1 - 1966 PPSV23) DTaP,Tdap,and Td Vaccines (1 - Tdap) 12/27/1971 COLONOSCOPY 2010 Zoster Recombinant Vaccine (SHINGRIX) (1 of 2) 2010 LUNG CANCER SCREEN: Recommended for age 55-80 with 30 12/27/2015 + pack year history INFLUENZA VACCINE (Season Ended) 2020 Depression Screening 04/19/2021 04/19/2020 documented as of this encounter Results Not on filedocumented in this encounter Visit Diagnoses Diagnosis Ventral hernia without obstruction or ga ngrene - Primary Ventral hernia, unspecified, without men tion of obstruction or gangrene Umbilical hernia without obstruction and without gangrene Chronic hepatitis C without hepatic coma documented in this encounter Insurance Payer Benefit Plan / Subscriber ID Effective Dates Phone Addre ss Type Group BCBS OF HIM BCBS BLUE [id number] 2019-Prese [phone] [address] [facility] nt [id number] [place] [address] 1 documented as of this encounter"
--- OUTSIDE RECORDS SUMMARY | 2020-04-27 09:26 | XMS REPORT | Summary of Care ---
:1960 [address] [facility] - [facility] Address [address] [place] [id number] Care Team Providers Name Role Phone Vince [place] DO Primary Care Provider Reason for Referral MRI/CAT Scan (Routine) Status Reason Specialty Diagnoses / Referred By Referred To Procedures Contact Contact New Request Diagnostic Diagnoses Ventral hernia without obstruction or gangrene Rian, Radiology Procedures CT ABDOMEN PELVIS W CONTRAST MD Nohemy [address] [place] [address] [address] [place] [address] Reason for Visit Reason Comments New Patient HERNIA 01/02 (Routine) Status Reason Specialty Diagnoses / Referred By Referred To Procedures Contact Contact Authorized BRAVO-SURGERY / Diagnoses Umbilical hernia without obstruction or gangrene Ventral hernia without obstruction or gangrene Hernia Vince [place], Surgery Procedures CONSULT GENERAL SURGERY NEW VISIT (FIRST TIME) DO Nohemy Gabriel MD [address] [place] [address] [address] [place] [address] [place], [place] Phone: [phone] Phone: Encounter Details Date Type Department Care Team Description 04/19/2020 Office Visit [facility] Surgical Nohemy Modi Ve ntral hernia without obstruction or gangrene (Primary Dx); Specialties - Sheri pearce MD Umbilical hernia without obstruction and without gangrene; [address], [address] [place] [address] Chronic hepatitis C without hepatic coma [address] [facility] [address] [address] [place], [place] [phone] [address] [phone] Allergies No Known Allergiesdocumented as of this [...] file Gets together: Not on file Attends sabianism service: Not on file Active member of [...] additional details. Nohemy Modi M.D. 04/20/2020 16:16 Sarayh Phelps - 04/19/2020 1:00 PM CDGamaliel Clark is a 59 year old male comes to clinic independent in ambulation for new patient hernia. Pt comes alone . Pt in NAD w/ pain reported 01/02. Pt preferred language is Honduran. Pt. denies fall in last 12 months. Allergies and medications reviewed and updated. [facility] [place] [place] [facility] [address] [facility] [place] [address] Sarahy Phelps 04/19/2020 1:08 PM documented in this encounter Plan of Treatment Date Type Specialty Care Team Description 04/27/2020 Appointment Radiology Nohemy Modi MD [address] [place] [address] [address] [place], [place] [address]463 05/03/2020 Office [place] [address] [place] [address] 2[address] [place], [place] 452163 Name Type Priority Associated Diagnoses Order S [...] LAB Routine Ventral hernia with out Expected: ([id number]) obstruction or gangrene 03/27, Expires: 04/19/2021 HEPATIC FUNCTION PANEL LAB Routine Ventral hernia wit hout Expected: ([id number]) (ALB,T.PRO,BILI obstruction or ga ngrene 04/19/2020, Expires: T,BU/BC,ALT,AST,ALK 04/19/20 21 PHOS) aPTT LAB Routine Ventral hernia without Expec abhijit: obstruction or gangrene 03/27, Expires: 04/19/2021 PROTHROMBIN TIME / INR LAB Routine Ventral hernia wit hout Expected: obstruction or gangrene 03/27, Expires: 04/19/2021 LIPID PANEL LAB Routine Ventral hernia without Expec abhijit: ([id number])(TOTAL obstruction or gangrene , Expires: CHOLESTEROL, 04/19/2021 [...] Type Group BCBS OF HIM BCBS BLUE [id number] 2019-Prese [phone] [address] [facility] nt [phone] [place] [address] documented as of this encounter"
--- NOTE | 2020-04-27 10:16 | EDPHYS ---
Physician Documentation [facility] Name: Jonas Clark Age: 59 yrs Sex: Male : 1960 Arrival Date: 04/27/2020 Time: 08:55 Bed 18 Private MD: Vince Hammond ED Physician Trevor Gruber HPI: 04/27 09:54 This 59 yrs old Male presents to ER via Ambulatory with complaints of Hernia. jmm 09:54 The patient presents with abdominal pain. Onset: The symptoms/episode began/occurred jmm gradually, 3 month(s) ago. The symptoms do not radiate. Associated signs and symptoms: Pertinent positives: nausea, Pertinent negatives: vomiting. This is a 59 year old male with a history of bipolar disorder, depression, hlp, htn that presents to the ED with complaints of abdominal pain due to hernias. Patient states this has been ongoing for months with no acute change in character. Denies vomiting, denies fever. Patient was evaluated outpatient [facility] surgery and scheduled a CT outpatient today. Patient states he could not afford outpatient CT. . Historical: - Allergies: 09:10 No Known Allergies; ss - PMHx: 09:10 Bipolar disorder; Depression; High Cholesterol; Hypertension; ss - Immunization history:: Adult Immunizations up to date. - Social history:: Smoking status: Patient denies any tobacco usage or history of. ROS: 09:54 Constitutional: Negative for fever, chills, and weight loss, Cardiovascular: Negative jmm for chest pain, palpitations, and edema, Respiratory: Negative for shortness of breath, cough, wheezing, and pleuritic chest pain. 09:54 Abdomen/GI: Positive for abdominal pain. 09:54 All other systems are negative. Exam: 09:54 Constitutional: This is a well developed, well nourished patient who is awake, alert, jmm and in no acute distress. Head/Face: atraumatic. Eyes: EOMI, no conjunctival erythema appreciated ENT: Moist Mucus Membranes Neck: Trachea midline, Supple Chest/axilla: Normal chest wall appearance and motion. Cardiovascular: Regular rate and rhythm. No edema appreciated Respiratory: Normal respirations, no respiratory distress appreciated 09:54 Abdomen/GI: ventral and umbilical hernia noted, reduce upon lying supine, soft, no erythema appreciated. . 09:54 Back: pain, ROM is normal. 09:54 Musculoskeletal/extremity: ROM: no acute changes. 09:54 Skin: Appearance: Color: normal in color. 09:54 Neuro: Orientation: is normal, Mentation: is normal, Memory: is normal. 09:54 Psych: Behavior/mood is pleasant, cooperative. Vital Signs: 09:07 BP 136 / 101; Pulse 109; Resp 18; Temp 98.1(TE); Pulse Ox 98% on R/A; Weight 96.16 kg; ss Height 5 ft. 8 in. (172.72 cm); Pain 05/04; 09:07 Body Mass Index 32.23 (96.16 kg, 172.72 cm) MDM: 09:54 Patient medically screened. ma2 10:13 Data reviewed: vital signs, nurses notes. Counseling: I had a detailed discussion with beltran the patient and/or guardian regarding: the historical points, exam findings, and any diagnostic results supporting the discharge/admit diagnosis, the need for outpatient follow up, to return to the emergency department if symptoms worsen or persist or if there are any questions or concerns that arise at home. Medical screen evaluation completed. [facility] emergency medical condition absent. Administered Medications: No medications were administered Disposition: 10:13 Abdominal Hernia. [facility] 19:08 Co-signature as Attending Physician, Trevor Gruber MD. [facility] Disposition: 04/27/20 10:15 Discharged to Home as Medical Screen. Impression: Ventral hernia, Umbilical hernia. - Condition is Stable. - Discharge Instructions: Ventral Hernia. - Medication Reconciliation Form, Thank You Letter, Antibiotic Education, Prescription Opioid Use form. - Follow up: Curtis Almeida MD; When: Thursday. Signatures: Jorge Luis Yost PA PA jmm Smirch, Shelby, RN RN ss Trevor Gruber MD MD ma2 Harris, Amy RN RN vicente Corrections: (The following items were deleted from the chart) 10:24 10:15 04/27/2020 10:15 Discharged to Home as Medical Screen. Impression: Ventral ah hernia; Umbilical hernia. Condition is Stable. Forms are Medication Reconciliation Form, Thank You Letter, Antibiotic Education, Prescription Opioid Use. Follow up: Curtis Almeida; When: Thursday. beltran
--- NOTE | 2020-04-27 10:16 | ER ---
Nurse's Notes [facility] Name: Jonas Clark Age: 59 yrs Sex: Male : 1960 Arrival Date: 04/27/2020 Time: 08:55 Bed 18 Private MD: Vince Hammond Diagnosis: Ventral hernia;Umbilical hernia Presentation: 04/27 09:07 Chief complaint: Patient states: "I have two abdominal hernias and they have been ss hurting off and on for months. Something needs to be done. I saw a surgeon last week, and was supposed to have a CT this morning, but it was going to be a 1000 dollars, and I can't afford that. I'm raising grandchildren." Physician is with [facility]. Coronavirus screen: Proceed with normal triage. Patient denies a cough. Patient denies shortness of breath or difficulty breathing. Patient denies measured and/or subjective temperature greater than 100.4F prior to today's visit. Patient denies travel on a cruise ship or to a country the [facility] currently lists as an affected area. Patient denies contact with known and/or suspected case of COVID-19. Ebola Screen: Patient denies exposure to infectious person. Patient denies travel to an Ebola-affected area in the 21 days before illness onset. Initial Sepsis Screen: Does the patient meet any 2 criteria? No. Patient's initial sepsis screen is negative. Does the patient have a suspected source of infection? No. Patient's initial sepsis screen is negative. Risk Assessment: Do you want to hurt yourself or someone else? Patient reports no desire to harm self or others. Onset of symptoms is unknown. 09:07 Method Of Arrival: Ambulatory ss 09:07 Acuity: YESENIA 3 ss Historical: - Allergies: 09:10 No Known Allergies; ss - PMHx: 09:10 Bipolar disorder; Depression; High Cholesterol; Hypertension; ss - Immunization history:: Adult Immunizations up to date. - Social history:: Smoking status: Patient denies any tobacco usage or history of. Screenin:15 Abuse screen: Denies threats or abuse. Nutritional screening: No deficits noted. Tuberculosis screening: No symptoms or risk factors identified. Fall Risk None identified. Assessment: 10:12 General: Appears uncomfortable, Behavior is calm, cooperative, appropriate for age. Pain: Complains of pain in epigastric area Pain Quality of pain is described as Pain began months Is continuous, Alleviated by repositioning, Aggravated by increased activity. Neuro: Level of Consciousness is awake, alert, obeys commands, Oriented to person, place, time, situation. Cardiovascular: Heart tones S1 S2 present Capillary refill < 3 seconds Patient's skin is warm and dry. Respiratory: Airway is patent Respiratory effort is even, unlabored, Respiratory pattern is regular, symmetrical. GI: Abdomen is round Bowel sounds present X 4 quads. Reports. Derm: Skin is intact, is healthy with good turgor. Vital Signs: 09:07 BP 136 / 101; Pulse 109; Resp 18; Temp 98.1(TE); Pulse Ox 98% on R/A; Weight 96.16 kg; ss Height 5 ft. 8 in. (172.72 cm); Pain 7/10; 09:07 Body Mass Index 32.23 (96.16 kg, 172.72 cm) ED Course: 08:55 Patient arrived in ED. mr 08:55 Vince Hammond DO is Private Physician. mr 09:09 Triage completed. 09:10 Arm band placed on right wrist. 09:54 Trevor Gruber MD is Attending Physician. [facility] 09:56 Jorge Luis Yost PA is PHCP. [facility] 10:12 Josefina Bah, RN is Primary Nurse. 10:15 Curtis Almeida MD is Referral Physician. [facility] 10:16 Patient has correct armband on for positive identification. Placed in gown. Bed in low ah position. Call light in reach. Side rails up X 1. 10:16 No provider procedures requiring assistance completed. Patient did not have IV access ah during this emergency room visit. Administered Medications: No medications were administered Outcome: 10:15 Discharge ordered by . [facility] 10:23 Medical screen evaluation completed per provider. Patient declined treatment. 10:23 Condition: stable 10:23 Discharge instructions given to patient. 10:24 Patient left the ED. Signatures: Jorge Luis Yost PA PA jmm Rivera, Mary mr June Maritza, RN RN Trevor Gruber MD MD [facility] Josefina Bah RN RN
[2020-04-27 10:32] VITALS: BP 136/101; TEMP 98.1; O2SAT 98
== END 2020-04-27 10:24 | disposition home or self-care (01) ==
LOC: ER 08:51
DX: K43.9 Ventral hernia without obstruction or gangrene (principal); K42.9 Umbilical hernia without obstruction or gangrene; I10 Essential (primary) hypertension
CPT/HCPCS: 99281

== ENCOUNTER → 2023-11-15 | Emergency (ER) | payer SELFPAY ==
--- OUTSIDE RECORDS SUMMARY | 2023-11-15 19:16 | XMS REPORT | Continuity of Care Document ---
Author Name Unknown Address [address] [facility] [address] [place] [address] [facility] Address [address] [facility] [address] [place] [address] Care Team Providers Care Mental Health Unit Lead Psychologist Name Role Phone TOÑA LOPEZ Attending Clinician Unavailable Toña Lopez MD Attending Clinician [phone] Doctor Unassigned, [place] Attending Clinician U navailable DOMINGO ARENAS Attending Clinician Unavailable Only, Adc Test Attending Clinician Unavailable Domingo Arenas MD Attending Clinician [phone], [facility] Lab Attending Clinician Unavailable Nohemy Modi MD Attending Clinician [phone] NOHEMY MODI Attending Clinician Unavailable Pob, Adc Lab Main Attending Clinician Unavailabl TOÑA Connelly Admitting Clinician Unavailable Toña Lopez MD Admitting Clinician [phone] Payers Payer Name Policy Type Policy Number Effective Date Expirati on Date Source [facility] [id number] 2019 00:00:00 Problems Condition Name Condition Details Condition Category Status Onset Date Resolution Date Last Treatment Date Treating Clinician Comments Source Obesity (BMI 30-39.9) Obesity (BMI 30-39.9) Disease Active 05-18 00:00: 00 [facility] Ventral hernia without obstructio n or gangrene Ventral hernia without obstructio n or gangrene Disease Active 05-08 00:00: 00 Overview: Added automatic ally from request for surgery [id number] [facility] Left inguinal hernia Left inguinal hernia Disease Active 05-08 00:00: 00 [facility] 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 04-17 00:00: 00 [facility] Personal history of nicotine dependence Personal history of nicotine dependence Disease Active 04-17 00:00: 00 [facility] Skin lesion Skin lesion Disease Active 04-17 00:00: 00 [facility] Umbilical hernia without obstructio n or gangrene Umbilical hernia without obstructio n or gangrene Disease Active 04-17 00:00: 00 [facility] Alcohol abuse, in remission Alcohol abuse, in remission Disease Active 04-17 00:00: 00 [facility] Chronic viral hepatitis C Chronic viral hepatitis C Disease Active 04-17 00:00: 00 [facility] Dysthymia Dysthymia Disease Active 04-17 00:00: 00 [facility] Essential (primary) hypertensi on Essential (primary) hypertensi on Disease Active 04-17 00:00: 00 [facility] Allergies, Adverse Reactions, Alerts Allergy Name Allergy Type Status Severity Reaction(s) Onset Date Inactive Date Treating Clinician Comments Source NO KNOWN ALLERGIE S Drug Class Active [facility] Social History Social Habit Start Date Stop Date Quantity Comments Source Sex Assigned At [facility] Exposure to SARS-CoV-2 (event) Not sure [facility] Tobacco use and exposure 2020-07-03 00:00:00 2020-07-03 00:00:00 Former user [facility] Alcohol intake 2020-07-03 00:00:00 2020-07-03 00:00:00 Ex-drinker (finding) [facility] Smoking Status Start Date Stop Date Source Former smoker 2020-07-03 00:00:00 2020-07-03 00:00:00 [facility] Medications Ordered Medication Name Filled Medication Name Start Date Stop Date Current Medication? Ordering Clinician Indication Dosage Frequency Signature (SIG) Comments Components Source cyclobenzap rine 5 mg tablet 7- 00:00: 00 Yes [id number] 5mg Take 1 tablet by mouth 3 (three) times daily. [facility] cyclobenzap rine 5 mg tablet 05-19 00:00: 00 07-03 00:00 :00 No [id number] 5mg Take 1 tablet by mouth 3 (three) times daily. [facility] cyclobenzap rine 5 mg tablet 05-19 00:00: 07-03 00:00 :00 No [id number] 5mg Take 1 tablet by mouth 3 (three) times daily. [facility] cyclobenzap rine 5 mg tablet 05-19 00:00: 07-03 00:00 :00 No [id number] 5mg Take 1 tablet by mouth 3 (three) times daily. [facility] ibuprofen (IBU) tablet 800 mg 05-18 18:43: 29 Yes 800mg 800 mg, Oral, PRN, 1 dose, Starting Thu05/18/20 at 1343, Until Discontinu ed, Routine, Pain (scale 1-3), DSU Recovery [facility] ibuprofen (IBU) tablet 800 mg 05-18 18:43: 29 Yes 800mg 800 mg, Oral, PRN, 1 dose, Starting Thu05/18/20 at 1343, Until Discontinu ed, Routine, Pain (scale 1-3), Pain (scale 4-6), DSU Recovery [facility] HYDROmorpho ne (DILAUDID) injection 0.2 mg 05-18 18:27: 43 Yes .2mg 0.2 mg, Slow IV Push, Q5MIN PRN, 10 doses, Starting Thu05/18/20 at 1327, Until Discontinu ed, Routine, Pain (scale 7-10), PACU
Us e approved by (Faculty): PACU USE -ANESTHESI A SERVICE-HY DROMORPHON E INJECTIONS [facility] FENTanyl PF (SUBLIMAZE (PF)) injection 25 mcg 05-18 18:27: 43 Yes 25ug 25 mcg, Slow IV Push, Q5MIN PRN, 4 doses, Starting Thu05/18/20 at 1327, Until Discontinu ed, Routine, Pain (scale 4-6), PACU [facility] bupivacaine (preserv free) (SENSORCAIN E MPF) 0.25 % (2.5 mg/mL) 18 mL, bupivacaine liposome (PF) (EXPAREL (PF)) 1.3 % (13.3 mg/mL) 266 mg, NaCl 0.9% (NS) 20 mL 05-18 17:54: 00 Yes PRN, Starting Thu05/18/20 at 1254, Intra-op [facility] bupivacaine (preserv free) (SENSORCAIN E MPF) 0.25 % (2.5 mg/mL) injection 05-18 14:05: 00 Yes PRN, Starting Thu05/18/20 at 0905, Until Discontinu ed, Routine, Intra-op [facility] proMETHazin e (PHENERGAN) 25 mg in NaCl 0.9% (NS) 50 mL IV piggyback 05-18 13:00: 07 Yes 25mg 25 mg, IV Piggyback, Q4HPRN, 1 dose, Starting Thu05/18/20 at 0800, Until Discontinu ed, Routine, Nausea and Vomiting (N/V) [facility] lactated ringers IV infusion 1,000 mL 05-18 11:45: 00 05-18 12:15 :00 No 1000mL at 20 mL/hr, 1,000 mL, IV Infusion, ONCE, 1 dose, Thu05/18/20 at 0645, Routine, DSU Pre-op [facility] gabapentin 300 mg capsule 05-18 00:00: 00 Yes [id number] 300mg Take 1 capsule by mouth 3 (three) times daily. [facility] gabapentin 300 mg capsule 05-18 00:00: 00 Yes [id number] 300mg Take 1 capsule by mouth 3 (three) times daily. [facility] gabapentin 300 mg capsule 05-18 00:00: 00 07-03 00:00 :00 No [id number] 300mg Take 1 capsule by mouth 3 (three) times daily. [facility] gabapentin 300 mg capsule 05-18 00:00: 00 07-03 00:00 :00 No [id number] 300mg Take 1 capsule by mouth 3 (three) times daily. [facility] gabapentin 300 mg capsule 2020-0 7-24 00:00: 00 07-03 00:00 :00 No [id number] 300mg Take 1 capsule by mouth 3 (three) times daily. [facility] hydrocortis one 1 % cream 2020-0 7-13 00:00: 00 Yes [id number] Apply to area(s) 2 (two) times daily as needed for Rash. [facility] hydrocortis one 1 % cream 2020-0 7-13 00:00: 00 Yes [id number] Apply to area(s) 2 (two) times daily as needed for Rash. [facility] hydrocortis one 1 % cream 2020-0 7-13 00:00: 00 Yes [id number] Apply to area(s) 2 (two) times daily as needed for Rash. [facility] hydrocortis one 1 % cream 2020-0 7-13 00:00: 00 Yes [id number] Apply to area(s) 2 (two) times daily as needed for Rash. [facility] hydrocortis one 1 % cream 2020-0 7-13 00:00: 00 Yes [id number] Apply to area(s) 2 (two) times daily as needed for Rash. [facility] hydrocortis one 1 % cream 2020-0 7-13 00:00: 00 Yes [id number] Apply to area(s) 2 (two) times daily as needed for Rash. [facility] hydrocortis one 1 % cream 2020-0 7-13 00:00: 00 Yes [id number] Apply to area(s) 2 (two) times daily as needed for Rash. [facility] hydrocortis one 1 % cream 2020-0 7-13 00:00: 00 Yes [id number] Apply to area(s) 2 (two) times daily as needed for Rash. [facility] hydrocortis one 1 % cream 2020-0 7-13 00:00: 00 Yes [id number] Apply to area(s) 2 (two) times daily as needed for Rash. [facility] hydrocortis one 1 % cream 2020-0 7-13 00:00: 00 Yes [id number] Apply to area(s) 2 (two) times daily as needed for Rash. [facility] hydrocortis one 1 % cream 05-07 00:00: 00 Yes [id number] Apply to area(s) 2 (two) times daily as needed for Rash. [facility] hydrocortis one 1 % cream 05-07 00:00: 00 Yes [id number] Apply to area(s) 2 (two) times daily as needed for Rash. [facility] hydrocortis one 1 % cream 05-07 00:00: 00 Yes [id number] Apply to area(s) 2 (two) times daily as needed for Rash. [facility] iohexol (OMNIPAQUE 350 BULK-100 mL) injection 120 mL 04-30 20:00: 00 04-30 19:39 :00 No 120mL 120 mL, Intravenou s, ONCE, 1 dose, Thu04/30/20 at 1500, Routine [facility] lisinopril 20 mg tablet 04-17 00:00: 04-19 00:00 :00 No 20mg Take 20 mg by mouth daily. [facility] lisinopril 20 mg tablet 04-17 00:00: 00 04-19 00:00 :00 No 20mg Take 20 mg by mouth daily. [facility] pravastatin 20 mg tablet 03-29 00:00: 00 Yes 20mg Take 20 mg by mouth every evening. [facility] pravastatin 20 mg tablet 03-29 00:00: 00 Yes 20mg Take 20 mg by mouth every evening. [facility] pravastatin 20 mg tablet 03-29 00:00: 00 Yes 20mg Take 20 mg by mouth every evening. [facility] pravastatin 20 mg tablet 03-29 00:00: 00 Yes 20mg Take 20 mg by mouth every evening. [facility] pravastatin 20 mg tablet 03-29 00:00: 00 Yes 20mg Take 20 mg by mouth every evening. [facility] pravastatin 20 mg tablet 03-29 00:00: 00 Yes 20mg Take 20 mg by mouth every evening. [facility] pravastatin 20 mg tablet 03-29 00:00: 00 Yes 20mg Take 20 mg by mouth every evening. [facility] pravastatin 20 mg tablet 03-29 00:00: 00 Yes 20mg Take 20 mg by mouth every evening. [facility] pravastatin 20 mg tablet 03-29 00:00: 00 Yes 20mg Take 20 mg by mouth every evening. [facility] pravastatin 20 mg tablet 03-29 00:00: 00 Yes 20mg Take 20 mg by mouth every evening. [facility] pravastatin 20 mg tablet 03-29 00:00: 00 Yes 20mg Take 20 mg by mouth every evening. [facility] pravastatin 20 mg tablet 03-29 00:00: 00 Yes 20mg Take 20 mg by mouth every evening. [facility] pravastatin 20 mg tablet 03-29 00:00: 00 Yes 20mg Take 20 mg by mouth every evening. [facility] pravastatin 20 mg tablet 03-29 00:00: 00 Yes 20mg Take 20 mg by mouth every evening. [facility] pravastatin 20 mg tablet 03-29 00:00: 00 Yes 20mg Take 20 mg by mouth every evening. [facility] pravastatin 20 mg tablet 03-29 00:00: 00 Yes 20mg Take 20 mg by mouth every evening. [facility] pravastatin 20 mg tablet 03-29 00:00: 00 Yes 20mg Take 20 mg by mouth every evening. [facility] pravastatin 20 mg tablet 03-29 00:00: 00 Yes 20mg Take 20 mg by mouth every evening. [facility] pravastatin 20 mg tablet 03-29 00:00: 00 Yes 20mg Take 20 mg by mouth every evening. [facility] lisinopril 20 mg tablet 03-03 00:00: 00 Yes 20mg Take 20 mg by mouth daily. [facility] lisinopril 20 mg tablet 0 03-03 00:00: 00 Yes 20mg Take 20 mg by mouth daily. [facility] lisinopril 20 mg tablet 03-03 00:00: 00 Yes 20mg Take 20 mg by mouth daily. [facility] lisinopril 20 mg tablet 03-03 00:00: 00 Yes 20mg Take 20 mg by mouth daily. [facility] lisinopril 20 mg tablet 03-03 00:00: 00 Yes 20mg Take 20 mg by mouth daily. [facility] lisinopril 20 mg tablet 03-03 00:00: 00 Yes 20mg Take 20 mg by mouth daily. [facility] lisinopril 20 mg tablet 03-03 00:00: 00 Yes 20mg Take 20 mg by mouth daily. [facility] lisinopril 20 mg tablet 03-03 00:00: 00 Yes 20mg Take 20 mg by mouth daily. [facility] lisinopril 20 mg tablet 03-03 00:00: 00 Yes 20mg Take 20 mg by mouth daily. [facility] lisinopril 20 mg tablet 03-03 00:00: 00 Yes 20mg Take 20 mg by mouth daily. [facility] lisinopril 20 mg tablet 03-03 00:00: 00 Yes 20mg Take 20 mg by mouth daily. [facility] lisinopril 20 mg tablet 03-03 00:00: 00 Yes 20mg Take 20 mg by mouth daily. [facility] lisinopril 20 mg tablet 03-03 00:00: 00 Yes 20mg Take 20 mg by mouth daily. [facility] lisinopril 20 mg tablet 03-03 00:00: 00 Yes 20mg Take 20 mg by mouth daily. [facility] lisinopril 20 mg tablet 03-03 00:00: 00 Yes 20mg Take 20 mg by mouth daily. [facility] lisinopril 20 mg tablet 03-03 00:00: 00 Yes 20mg Take 20 mg by mouth daily. [facility] lisinopril 20 mg tablet 03-03 00:00: 00 Yes 20mg Take 20 mg by mouth daily. [facility] lisinopril 20 mg tablet 03-03 00:00: 00 Yes 20mg Take 20 mg by mouth daily. [facility] lisinopril 20 mg tablet 03-03 00:00: 00 Yes 20mg Take 20 mg by mouth daily. [facility] Vital Signs Vital Name Observation Time Observation Value Comments S marva Systolic blood pressure 2020-07-03 13:09:00 124 mm[Hg] [facility] Diastolic blood pressure 2020-07-03 13:09:00 91 mm[Hg] [facility] Heart rate 2020-07-03 13:09:00 88 /min [facility] Body temperature 2020-07-03 13:09:00 36.33 Shiloh [facility] Respiratory rate 2020-07-03 13:09:00 18 /min [facility] Body height 2020-07-03 13:09:00 172.7 cm [facility] Body weight 2020-07-03 13:09:00 93.441 kg [facility] BMI 2020-07-03 13:09:00 31.32 kg/m2 [facility] Oxygen saturation in Arterial blood by Pulse oximetry 2020-07-03 13:09:00 98 /min [facility] Systolic blood pressure 2020-05-18 19:20:00 94 mm[Hg] [facility] Diastolic blood pressure 2020-05-18 19:20:00 72 mm[Hg] [facility] Heart rate 2020-05-18 19:20:00 88 /min [facility] Respiratory rate 2020-05-18 19:20:00 19 /min [facility] Oxygen saturation in Arterial blood by Pulse oximetry 2020-05-18 19:20:00 95 /min [facility] Body temperature 2020-05-18 18:36:00 36.61 Shiloh [facility] Body height 2020-05-18 12:23:00 172.7 cm [facility] Body weight 2020-05-18 12:23:00 92.987 kg [facility] BMI 2020-05-18 12:23:00 31.17 kg/m2 [facility] Systolic blood pressure 2020-05-08 17:45:00 129 mm[Hg] [facility] Diastolic blood pressure 2020-05-08 17:45:00 86 mm[Hg] [facility] Heart rate 2020-05-08 17:45:00 83 /min [facility] Body temperature 2020-05-08 17:45:00 36.33 Shiloh [facility] Respiratory rate 2020-05-08 17:45:00 15 /min [facility] Body height 2020-05-08 17:45:00 172.7 cm [facility] Body weight 2020-05-08 17:45:00 93.26 kg [facility] BMI 2020-05-08 17:45:00 31.26 kg/m2 [facility] Oxygen saturation in Arterial blood by Pulse oximetry 2020-05-08 17:45:00 99 /min [facility] Systolic blood pressure 2020-05-07 15:39:00 135 mm[Hg] [facility] Diastolic blood pressure 2020-05-07 15:39:00 92 mm[Hg] [facility] Heart rate 2020-05-07 15:39:00 82 /min [facility] Body temperature 2020-05-07 15:39:00 36.78 Shiloh [facility] Respiratory rate 2020-05-07 15:39:00 18 /min [facility] Body weight 2020-05-07 15:39:00 93.078 kg [facility] Systolic blood pressure 2020-04-19 18:06:00 135 mm[Hg] [facility] Diastolic blood pressure 2020-04-19 18:06:00 93 mm[Hg] [facility] Heart rate 2020-04-19 18:06:00 83 /min Un[facility] Body temperature 2020-04-19 18:06:00 36.28 Shiloh [facility] Respiratory rate 2020-04-19 18:06:00 18 /min [facility] Body weight 2020-04-19 18:06:00 91.264 kg [facility] Systolic blood pressure 2020-04-19 18:06:00 135 mm[Hg] [facility] Diastolic blood pressure 2020-04-19 18:06:00 93 mm[Hg] [facility] Heart rate 2020-04-19 18:06:00 83 /min [facility] Body temperature 2020-04-19 18:06:00 36.28 Shiloh [facility] Respiratory rate 2020-04-19 18:06:00 18 /min [facility] Body weight 2020-04-19 18:06:00 91.264 kg [facility] Procedures Procedure Date / Time Performed Performing Clinician Source ASSIGNMENT OF BENEFITS 2020-05-18 11:39:03 Docto r Unassigned, [place] [facility] CONSENT/REFUSAL FOR DIAGNOSIS AND TREATMENT 2020-05-14 14:50:43 Doctor Unassigned, [place] [facility] ASSIGNMENT OF BENEFITS 2020-05-14 14:50:31 Docto r Unassigned, [place] [facility] INSURANCE CORRESPONDENCE 2020-05-04 05:01:00 Doc tor Unassigned, [place] [facility] CT ABDOMEN PELVIS W CONTRAST 2020-04-30 19:43:33 Joana Hyman [facility] Encounters Start Date/Time End Date/Time Encounter Type Admission Type Attending Clinicians Care Facility Care Department Encounter ID Source 2021-08-23 06:51:13 Outpatient TOÑA VANCE [facility] [id number] [facility] 2020-12-25 08:00:00 2020-12-25 08:00:00 Outpatient TOÑA VANCE [facility] [id number] [facility] 2020-07-03 08:00:00 2020-07-03 08:00:00 [id number] 2020-07-03 07:40:15 2020-07-03 07:55:15 Office Visit Juliane, Toña [facility] [id number] [id number] [facility] 2020-05-31 00:00:00 2020-05-31 00:00:00 Telephone Toña Lopez [facility] [id number] [id number] [id number] [facility] 2020-05-18 06:38:00 2020-05-18 14:41:00 Hospital Encounter Toña Lopez [facility] ([facility] [id number] [id number] [id number] [id number] [facility] 2020-05-18 00:00:00 2020-05-18 00:00:00 Orders Only Doctor Unassigned, [place] [facility] [id number] 350.1.13.10 [id number] [id number] [facility] 2020-05-14 10:30:00 2020-05-14 10:30:00 Outpatient R DOMINGO ARENAS [facility] [id number] [facility] 2020-05-14 09:57:07 2020-05-14 10:12:07 Laboratory Only Only, Adc Test Domingo Arenas A [facility] [id number] 350.1.13.10 [id number] [id number] [facility] 2020-05-08 12:33:42 2020-05-08 13:03:42 Office Visit Toña Lopez [facility] Building [id number] [id number] [id number] [id number] [facility] 2020-05-08 13:00:00 2020-05-08 13:00:00 Outpatient R TOÑA LOPEZ [facility] [id number] [facility] 2020-05-07 11:06:05 2020-05-07 11:21:05 Relay Adjuster Visit 2, Adc Lab Nohemy Modi [facility] Building [id number] 350.1.13.10 4.2.7.2.686 [id number] [facility] 2020-05-07 10:29:55 2020-05-07 11:11:31 Office Visit Nohemy Modi [facility] [id number] 350.1.13.10 [id number] [id number] [facility] 2020-05-07 10:45:00 2020-05-07 10:45:00 Outpatient R NOHEMY MODI [facility] [id number] [facility] 2020-05-04 00:00:00 2020-05-04 00:00:00 Orders Only Doctor Unassigned, [place] [facility] [id number] 350.1.13.10 [id number] [id number] [facility] 2020-05-03 09:30:00 2020-05-03 09:30:00 Outpatient R NOHEMY MODI [facility] [id number] [facility] 2020-04-30 13:00:00 2020-04-30 23:59:00 Hospital Encounter Nohemy Modi [facility] [id number] 350.1.13.10 [id number] [id number] [facility] 2020-04-30 12:45:00 2020-04-30 12:45:00 Outpatient R NOHEMY MODI [facility] [id number] [facility] 2020-04-30 10:50:17 2020-04-30 11:05:17 Relay Adjuster Visit Pob, Adc Lab [facility] [id number] 350.1.13.10 4.2.7.2.686 [id number] [facility] 2020-04-27 11:46:00 2020-04-27 23:59:00 Hospital Encounter Nohemy Modi [facility] [id number] 350.1.13.10 4.2.7.2.686 [id number] [facility] 2020-04-27 12:15:00 2020-04-27 12:15:00 Outpatient R NOHEMY MODI [facility] [id number] [facility] 2020-04-19 12:35:13 2020-04-19 13:59:47 [facility] [id number] 350.1.13.10 4.2.7.2.686 [id number] 2020-04-19 12:35:13 2020-04-19 13:59:47 Office Visit Nohe[facility] [id number] 350.1.13.10 4.2.7.2.686 [id number] [facility] 2020-04-19 13:00:00 2020-04-19 13:00:00 Outpatient R NOHEMY MODI [facility] [id number] [facility]
[2023-11-15 19:51] LABS: Absolute Lymphocytes (CBC) 2.2 K/uL (0.7-4.9); Hematocrit 47.3 % (39.6-49.0); Lymphocytes % 26.7 % (15.3-44.8); MCV 88.2 fL (80-100); MPV 9.7 fL (7.6-11.3); Platelets 184 thou/uL (152-406); RBC Red Blood Cell Count 5.36 M/uL (4.33-5.43)
[2023-11-15 20:12] LABS: Magnesium 2.4 mg/dL (1.6-2.4); Potassium 4.1 mEq/L (3.5-5.1); Troponin High Sensitivity 6.2 pg/mL (<58.9)
--- NOTE | 2023-11-15 20:15 | RAD REPORT ---
EXAM DESCRIPTION: RAD - Chest Single View - 11/15/2023 8:10 pm CLINICAL HISTORY: DYSPNEA COMPARISON: <Comparisons> FINDINGS: Lines: None. Lungs: No evidence of edema or pneumonia. Pleural: No significant pleural effusions or pneumothorax. Cardiac: The heart size is within normal limits. Mediastinum: Within normal limits. Bones: No acute fractures. Remote right posterior seventh rib fracture. Other: None IMPRESSION: No acute cardiopulmonary disease.
--- NOTE | 2023-11-15 20:57 | EDPHYS ---
Physician Documentation [facility] Name: Jonas Clark Age: 62 yrs Sex: Male : 1960 Arrival Date: 11/15/2023 Time: 19:13 Bed 7 Private MD: ED Physician Apolinar Gomez HPI: 11/15 22:30 This 62 yrs old Male presents to ER via Ambulatory with complaints of High Blood kb Pressure, Left arm pain.. 22:30 Pt is a 62 year old male who presents with high blood pressure. Patient states he is kb supposed to take lisinopril 20 mg daily but has not taken it in a long time because he forgets to take it. States he woke up this morning and felt lightheaded with slight shortness of breath so he checked his blood pressure and it was 170s over 120s. Took a lisinopril 20 mg and waited a few hours before rechecking. States it was still 170/120 so he took a second like lisinopril 20 mg. Patient states he checked his blood pressure for the third time about 45 minutes prior to arrival and it was 170/130 so he took a third lisinopril 20 mg and came to be evaluated.. Historical: - Allergies: 19:43 No Known Allergies; pf1 - PMHx: 19:43 Bipolar disorder; Depression; hernia repair; High Cholesterol; Hypertension; pf1 - PSHx: 19:43 hernia repair x 3; pf1 - Immunization history:: Adult Immunizations not up to date, Client reports having NOT received the Covid vaccine. Last tetanus immunization: < 10 years ago Flu vaccine is not up to date. - Social history:: Smoking status: Patient/guardian denies using tobacco, the patient reports quitting approximately 32 years ago, Patient/guardian denies using alcohol, the patient reports quitting approximately 33 years ago, street drugs, denies using street drugs. ROS: 19:42 Constitutional: Negative for fever, chills, and weight loss, kb 19:42 Respiratory: Positive for shortness of breath, 19:42 Neuro: Positive for lightheaded, 19:42 All other systems are negative, Exam: 19:42 Constitutional: This is a well developed, well nourished patient who is awake, alert, kb and in no acute distress. Head/Face: Normocephalic, atraumatic. ENT: Moist Mucous membranes Cardiovascular: Regular rate Respiratory: Respirations even and unlabored. No increased work of breathing. Talking in full sentences Abdomen/GI: Soft, non-tender. No distention Skin: Warm, dry with normal turgor. Normal color. MS/ Extremity: Pulses equal, no cyanosis. Neurovascular intact. Full, normal range of motion. Neuro: Awake and alert, GCS 15, oriented to person, place, time, and situation. Moves all extremities. Normal gait. 19:42 ECG was reviewed by the Attending Physician. Vital Signs: 19:18 BP 175 / 114; Pulse 78; Resp 78; Temp 97.9; Pulse Ox 97% on R/A; Weight 97.07 kg; pf1 Height 5 ft. 8 in. ; Pain 0/10; 20:49 BP 123 / 92; Pulse 58; Resp 23; Pulse Ox 96% on R/A; jb4 19:18 Body Mass Index 32.54 (97.07 kg, 172.72 cm) pf1 19:18 Pain Scale: Adult pf1 MDM: 19:23 Patient medically screened. kb 19:43 Data reviewed: vital signs, nurses notes. kb 22:29 Differential diagnosis: hypertensive crisis, Malignant HTN, uncontrolled htn. kb Counseling: I had a detailed discussion with the patient and/or guardian regarding the historical points, exam findings, and any diagnostic results supporting the discharge/admit diagnosis, lab results, radiology results, the need for outpatient follow up, a family practitioner, to return to the emergency department if symptoms worsen or persist or if there are any questions or concerns that arise at home. ED course: BP improved without intervention, pt states his symptoms have resolved and he feels fine now. Educated to keep bp log and follow up with PCP . 11/15 18: Order name: Basic Metabolic Panel; Complete Time: 20:13 kb 11/15 18: Order name: CBC with Diff; Complete Time: 19:56 kb 11/15 Order name: Magnesium; Complete Time: 20:13 kb 11/15 18: Order name: Troponin HS; Complete Time: 20:13 kb 11/15 18: Order name: XRAY Chest (1 view); Complete Time: 20:17 kb 11/15 Order name: EKG; Complete Time: 19:28 kb 01/21 19:27 Order name: Cardiac monitoring; Complete Time: 19:38 kb 11/15 19:27 Order name: EKG - Nurse/Tech; Complete Time: 19:38 kb 11/15 19:27 Order name: IV Saline Lock; Complete Time: 19:43 kb 11/15 19:27 Order name: Labs collected and sent; Complete Time: 19:43 kb 11/15 19:27 Order name: O2 Per Protocol; Complete Time: 19:38 kb 11/15 19:27 Order name: O2 Sat Monitoring; Complete Time: 19:38 kb 11/15 20:46 Order name: Vital Signs; Complete Time: 20:49 kb EC:42 Rate is 77 beats/min. Rhythm is regular. QRS [place] is Normal. MI interval is normal at kb 188 msec. QRS interval is normal at 90 msec. QT interval is normal at 430 msec. Administered Medications: No medications were administered Disposition: 23:17 I was immediately available on-site in the Emergency Department for consultation in the ms3 care of the patient. Disposition Summary: 11/15/23 20:56 Discharge Ordered Notes: Location: Home kb Condition: Stable kb Diagnosis - Essential (primary) hypertension kb Followup: kb - With: Emergency Department - When: As needed - Reason: Worsening of condition Followup: kb - With: Private Physician - When: 2 - 3 days - Reason: Recheck today's complaints, Continuance of care, Re-evaluation by your physician Discharge Instructions: - Discharge Summary Sheet kb - Hypertension, Adult, [id number] kb - Managing Your Hypertension kb Forms: - Medication Reconciliation Form kb - Thank You Letter kb - Antibiotic Education kb - Prescription Opioid Use kb - Patient Portal Instructions kb - Leadership Thank You Letter kb Signatures: Dispatcher [employer] Tanya Larose, JOANNE-Julius RUBIO-Apolinar Chaney DO DO ms3 Joi Waggoner, RN RN pf1
--- NOTE | 2023-11-15 20:57 | ER ---
Nurse's Notes [facility] Name: Jonas Clark Age: 62 yrs Sex: Male : 1960 Arrival Date: 11/15/2023 Time: 19:13 Bed 7 Private MD: Diagnosis: Essential (primary) hypertension Presentation: 11/15 19:18 Chief complaint: Patient states: elevated BP 175/133 with left arm numbness and pf1 tingling sensation,onset today. 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 Patient denies any pain. 19:18 Coronavirus screen: Vaccine status: Patient reports being unvaccinated. Client denies pf1 travel out of the [place] in the last 14 days. At this time, the client does not indicate any symptoms associated with coronavirus-19. Ebola Screen: Patient negative for fever greater than or equal to 101.5 degrees Fahrenheit, and additional compatible Ebola Virus Disease symptoms. Initial Sepsis Screen: Does the patient meet any 2 criteria? No. Patient's initial sepsis screen is negative. Does the patient have a suspected source of infection? No. Patient's initial sepsis screen is negative. Risk Assessment: Do you want to hurt yourself or someone else? Patient reports no desire to harm self or others. 19:18 Method Of Arrival: Ambulatory pf1 19:18 Acuity: YESENIA 3 pf1 19:50 Onset of symptoms was November 15, 2023. jw7 Historical: - Allergies: 19:43 No Known Allergies; pf1 - PMHx: 19:43 Bipolar disorder; Depression; hernia repair; High Cholesterol; Hypertension; pf1 - PSHx: 19:43 hernia repair x 3; pf1 - Immunization history:: Adult Immunizations not up to date, Client reports having NOT received the Covid vaccine. Last tetanus immunization: < 10 years ago Flu vaccine is not up to date. - Social history:: Smoking status: Patient/guardian denies using tobacco, the patient reports quitting approximately 32 years ago, Patient/guardian denies using alcohol, the patient reports quitting approximately 33 years ago, street drugs, denies using street drugs. Screenin:42 [facility] ED Fall Risk Assessment (Adult) History of falling in the last 3 months, jw7 including since admission No falls in past 3 months (0 pts) Score/Fall Risk Level 0 - 2 = Low Risk Oriented to surroundings, Maintained a safe environment, Educated pt \T\ family on fall prevention, incl call for assistance when getting out of bed. Abuse screen: Denies threats or abuse. Denies injuries from another. Nutritional screening: No deficits noted. Tuberculosis screening: No symptoms or risk factors identified. Assessment: 19:47 General: Appears in no apparent distress. comfortable, Behavior is calm, cooperative. jw7 Pain: Denies pain. Neuro: Level of Consciousness is awake, alert, obeys commands, Oriented to person, place, time, situation, Reports Numbness/tingling in left arm. Cardiovascular: Heart tones S1 S2 present Capillary refill < 3 seconds Clubbing of nail beds is absent JVD is absent Patient's skin is warm and dry. Parent/caregiver reports patient has had high blood pressure today systolic in the 170's and diastolic in the 130's. Respiratory: Airway is patent Trachea midline Respiratory effort is even, unlabored, Respiratory pattern is regular, symmetrical. GI: Abdomen is round non-distended. : No deficits noted. No signs and/or symptoms were reported regarding the genitourinary system. EENT: No deficits noted. No signs and/or symptoms were reported regarding the EENT system. Derm: Skin is intact, is healthy with good turgor, Skin is dry, Skin is normal, Skin temperature is warm. Musculoskeletal: Circulation, motion, and sensation intact. Range of motion: intact in all extremities. 20:56 Reassessment: Patient appears in no apparent distress at this time. No changes from jw7 previously documented assessment. Patient and/or family updated on plan of care and expected duration. Pain level reassessed. Patient is alert, oriented x 3, equal unlabored respirations, skin warm/dry/pink. Vital Signs: 19:18 BP 175 / 114; Pulse 78; Resp 78; Temp 97.9; Pulse Ox 97% on R/A; Weight 97.07 kg; pf1 Height 5 ft. 8 in. ; Pain 0/10; 20:49 BP 123 / 92; Pulse 58; Resp 23; Pulse Ox 96% on R/A; jb4 19:18 Body Mass Index 32.54 (97.07 kg, 172.72 cm) pf1 19:18 Pain Scale: Adult pf1 ED Course: 19:17 Patient arrived in ED. gm2 19:23 Tanya Mccormick FNP-C is [facility]. kb 19:23 Apolinar Gomez DO is Attending Physician. kb 19:41 Initial lab(s) drawn, by me, sent to lab. EKG done, by ED staff, reviewed by Apolinar Gomez DO. Inserted saline lock: 20 gauge in right antecubital area, using aseptic technique. Blood collected. 19:42 Patient has correct armband on for positive identification. Bed in low position. Call jw7 light in reach. Side rails up X 1. 19:42 Arm band placed on. jw7 19:43 Triage completed. pf1 20:12 XRAY Chest (1 view) In Process Unspecified. EDMS 21:04 No provider procedures requiring assistance completed. IV discontinued, intact, jw7 bleeding controlled, No redness/swelling at site. Pressure dressing applied. 21:04 Provided Education on: discharge instructions. jw7 Administered Medications: No medications were administered Medication: 21:04 VIS not applicable for this client. jw7 Outcome: 20:56 Discharge ordered by . kb 21:04 Discharged to home ambulatory, jw7 21:04 Condition: stable 21:04 Discharge instructions given to patient, Instructed on discharge instructions, follow up and referral plans. Demonstrated understanding of instructions, follow-up care, 21:04 Patient left the ED. jw7 Signatures: Dispatcher [employer] EDDE Tanya Mccormick FNP-C FNP-Ckb Bryson, James, RN RN jb4 Shwetha Roberts RN RN jw7 Joi Waggoner RN RN pf1 Negrita Ventura gm2
[2023-11-15 22:53] VITALS: BP 123/92; TEMP 97.9; O2SAT 96
--- NOTE | 2023-11-16 16:52 | EKG ---
Test Date: 2023-11-15 Test Time: 19:28:15 Plastics Nurse: ALBERTA MEASUREMENT RESULTS: Intervals: Rate: 77 MD: 188 QRSD: 90 QT: 380 QTc: 430 [place]: P: 53 MD: 188 QRS: 56 T: 46 INTERPRETIVE STATEMENTS: Normal sinus rhythm Septal infarct, age undetermined Abnormal ECG Compared to ECG 11/12/2018 12:01:20 No significant changes Electronically Signed On 11-16-23 16:51:13 [employer]INE[employer] by Elliot Gauthier
== END ==
LOC: ER 19:13
DX: I10 Essential (primary) hypertension (principal)
CPT/HCPCS: 36415; 71045; 80048; 83735; 84484; 85025; 93005; 99284